=== PATIENT | female | born 1955 | race Caucasian/White ===

== ENCOUNTER 2020-07-10 17:37 | Outpatient (CLI) | payer BC | END 2020-07-10 17:38 | disposition home or self-care (01) | LOC: SCSRAD 17:37 | PROVIDERS: ATTEND Family Medicine | DX: M79.642 Pain in left hand (principal); M79.641 Pain in right hand; M25.561 Pain in right knee; M25.562 Pain in left knee; M19.042 Primary osteoarthritis, left hand; M19.041 Primary osteoarthritis, right hand; M17.0 Bilateral primary osteoarthritis of knee ==

== ENCOUNTER 2020-08-14 09:52 | Outpatient (CLI) | payer BC | END 2020-08-14 09:53 | disposition home or self-care (01) | LOC: DTY/OP 09:52 | PROVIDERS: ATTEND Family Medicine | DX: R73.03 Prediabetes (principal) | CPT/HCPCS: 97802 ==